=== PATIENT | female | born 1950 | race African-American/Black ===

== ENCOUNTER 2016-09-11 15:30 | Outpatient (RCR) | payer OTHER | END 2016-09-17 | disposition home or self-care (01) | LOC: PTY 15:30 | DX: M54.5 Low back pain (principal) ==

== ENCOUNTER 2016-10-03 08:18 | Outpatient (RCR) | payer OTHER | END 2016-10-17 | disposition home or self-care (01) | LOC: PTY 08:18 | DX: M54.5 Low back pain (principal) | CPT/HCPCS: 97110; 97140; G0283 ==

== ENCOUNTER 2016-10-27 08:36 | Outpatient (RCR) | payer OTHER | END 2016-11-17 | disposition home or self-care (01) | LOC: PTY 08:36 | DX: M54.5 Low back pain (principal); Z98.1 Arthrodesis status ==

== ENCOUNTER 2016-12-04 16:15 | Outpatient (RCR) | payer OTHER | END 2016-12-18 | disposition home or self-care (01) | LOC: PTY 16:15 | DX: M54.5 Low back pain (principal); Z98.1 Arthrodesis status ==